=== PATIENT | female | born 1935 | race Caucasian/White ===

== ENCOUNTER → 2017-04-05 | Outpatient (CLI) | payer MEDICARE, OTHER ==
[~2017-04-05] MED LIST: CHEWABLE ASPIRI81 MG PO; DIOVAN HCT 12.51 TA2 PO; NORVASC 5MG. TAB5 MG PO; SYNTHROID 0.0.075 MG PO
--- NOTE | 2017-04-05 10:04 | CARDIOVASCULAR REPORT ---
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 785.9 Bruit. IMPRESSIONS 1. The bilateral vertebral arteries are patent with normal antegrade flow. 2. Study suggests less than 20% stenosis involving the right internal carotid artery and the left internal carotid artery. History: Risk factors: Hypertension. Carotid duplex study. Complete study and Doppler flow study including spectral analysis, color and huff scale imaging. Location: Vascular laboratory. Patient status: Outpatient. Tables: Arterial flow: + +--------+--------+ |Location |V sys |V ed | + +--------+--------+ |Right CCA - proximal|68.4cm/s|15.7cm/s| + +--------+--------+ |Right CCA - distal |64.4cm/s|16.5cm/s| + +--------+--------+ |Right ECA |73.1cm/s|--------| + +--------+--------+ |Right ICA - proximal|57.4cm/s|16.5cm/s| + +--------+--------+ |Right ICA - mid |72.3cm/s|18.1cm/s| + +--------+--------+ |Right ICA - distal |77.8cm/s|17.3cm/s| + +--------+--------+ |Right vertebral |47.9cm/s|--------| + +--------+--------+ |Left CCA - proximal |96.6cm/s|17.3cm/s| + +--------+--------+ |Left CCA - distal |63.6cm/s|14.1cm/s| + +--------+--------+ |Left ECA |84.1cm/s|--------| + +--------+--------+ |Left ICA - proximal |28.8cm/s|8.7cm/s | + +--------+--------+ |Left ICA - mid |55.4cm/s|15.7cm/s| + +--------+--------+ |Left ICA - distal |68.1cm/s|20.5cm/s| + +--------+--------+ |Left vertebral |39.3cm/s|--------| + +--------+--------+ Velocity ratios: + + + + + + | |Right, V sys|Right, V ed|Left, V sys|Left, V ed| + + + + + + |Max ICA/dist CCA|1.21 |1.1 |1.07 |1.45 | + + + + + + (Report amended ) Electronically signed by: Refugio Rojas [id number]"
--- NOTE | 2017-04-05 16:03 | RADIOLOGY REPORT PS360 ---
PROCEDURE: 2-D M-mode and color Doppler study INDICATIONS FOR THE TEST: Chest pain COPD Heart Murmur Tobacco Smoking Palpitations Fatigue+ Syncope Edema Hypertension+Diabetes Mellitus Rheumatic Fever SOB LOVELL Obesity Hyperlipidemia Family History HD+ Additional History CVA 1993 PATIENT INFORMATION HEIGHT: 61 WEIGHT: 160 GENDER: Female B/P: 138/86 2-D/M-MODE INTERPRETATION: 2-D MEASUREMENTS OBSERVED VALUES IN CMS Right Ventricular Dimension (RVDd) 2.3 Interventricular Septum (Thickness)(IVsd) 1.1 Left Ventricular Internal Dimensions(LVIDd) 4.2 Left Ventricular Posterior Wall (Thickness)(LVPWd) 1.1 Aortic Root 2.0 Aortic Cusp Separation 1.6 Left Atrial Dimensions (LAD) 3.4 2D 1. Left atrium is qualitatively mildly enlarged, left ventricle is normal size, there is mild concentric left ventricular hypertrophy, visually estimated ejection fraction 55% with no obvious regional wall motion abnormality. 2. The right atrium and right ventricle are normal size and contractility. 3. The aortic valve is minimally thickened and calcified leaflet continue to display mobility. 4. The mitral valve has mild mitral calcification, there is no mitral stenosis. 5. The tricuspid valve is structurally normal. 6. The pulmonic valve is not well visualized. 7. No significant pericardial effusion noted. DOPPLER INTERROGATION: Doppler interrogation of the aortic mitral and tricuspid valvular presence of mild aortic, mild mitral and tricuspid regurgitation, tricuspid regurgitant jet velocity insufficient for calculation of the right ventricular systolic pressure, grade 1 diastolic dysfunction seen with tissue Doppler evidence of raised left atrial pressure. CONCLUSION: 1. Mildly enlarged left atrium, normal left ventricular size, mild concentric left ventricular hypertrophy, visually estimated ejection fraction 55% with no obvious regional wall motion abnormality. Grade 1 diastolic dysfunction seen with tissue Doppler evidence of raised left atrial pressure. 2. Mild aortic, mild mitral and tricuspid regurgitation, tricuspid and jet velocity insufficient for calculation of the right ventricular systolic pressure. 3. No significant pericardial effusion noted.
== END ==
LOC: RT 09:00
DX: R09.89 Other specified symptoms and signs involving the circulatory and respiratory systems (principal); R60.1 Generalized edema

== ENCOUNTER → 2017-05-06 | Day surgery (SDC) | payer MEDICARE, OTHER ==
[2017-05-06] VITALS (10 sets, daily range): BP systolic 121–172; BP diastolic 62–106
[2017-05-06 08:02] LABS: HEMOGLOBIN 13.2 g/dL (12.2-16.2); LYMPH # 1.9 K/mm3 (0.7-4.5); LYMPH % 15.1 % (10-50.0)
[2017-05-06 08:07] LABS: BUN 15 mg/dL (7-18); GFR (ESTIMATED) 69 ML/MIN (59-)
[2017-05-06 09:11] LABS: URINE BILIRUBIN - DIPSTICK NEGATIVE (NEG); URINE BLOOD NEGATIVE (NEG)
[2017-05-07] VITALS (8 sets, daily range): BP systolic 145–186; BP diastolic 63–85
--- NOTE | 2017-05-13 16:16 | RADIOLOGY REPORT PS360 ---
CARDIAC CATHETERIZATION DATE OF CATHETERIZATION:05/06/2017 3:57 PM PROCEDURES: 1. Left heart catheterization 2. Left ventriculogram 3. Selective coronary angiogram 4. Drug-eluting stent deployment to the mid left anterior 5. Drug-eluting stent deployment to the first diagonal artery 6. Drug-eluting stent deployment to the proximal dominant circumflex artery INDICATION FOR TEST: 1. Abnormal Myoview 2. Coronary artery disease 3. Preoperative evaluation 4. High risk abnormal stress test Informed consent was obtained prior to the procedure. COMPLICATIONS: None ESTIMATED BLOOD LOSS: Less than 10 ml. TECHNIQUE: One percent lidocaine used to anesthetize the right anterior aspect of the wrist. The right radial artery was accessed via the Seldinger technique. A 6 [place] sheath was placed in the right radial artery. 2.5 mg of verapamil, 800 mcg of nitroglycerin and 5000 U Heparin were given through the arterial sheath. A trap dexterity catheter was also used to perform left heart catheterization and left ventriculography. At the end of the diagnostic procedure an additional 2000 units of heparin was administered intravenously. The ACT was measured at 373 seconds. An NGDATA left guide catheter was used intubate the left main artery and a choice PT extra-support wire was placed into the proximal mid dominant circumflex artery. A 3.5 x 18 mm resolute [place] stent was deployed at 18 radha reducing the 70-80% stenosis to 0%. Excellent angiographic results were obtained with TOO-3 flow down the vessel before and after the procedure. Following stenting of the circumflex artery the wire was in placed down into the mid LAD and a noncompliant 2.0 x 15 mm balloon was used to predilate the stenosis. Following this a 2.5 x 18 mm resolute [place] stent is deployed at 16 radha reducing the severe stenosis to 0%. The LAD itself had excellent angiographic results however a very large diagonal artery which has the appearance of a dual LAD system had an ostial complex stenosis. After repeat angiography I decided this vessel was so large that revascularization was needed especially given the plaque shifting complex nature of the ostial diagonal artery. The wire was placed into the diagonal artery and a 1.5 mm balloon into be used in order to push through the high-grade stenosis. An additional predilatation was made and the diagonal artery using a 2.5 mm balloon. Following this an additional 2.5 x 18 mm resolute [place] stent was placed in the proximal LAD extending into the proximal portion of the diagonal artery and deployed at 12 radha. Following this a noncompliant 2.5 x 10 mm balloon was placed in the LAD proper outside of the diagonal artery and deployed at any atmospheres in order to post dilate. Excellent angiographic results were obtained with TOO-3 flow down the LAD and diagonal artery before and after the procedure. The end of the procedure the apparatus was removed the sheath was removed good hemostasis was achieved using TR banding patient transferred the postop holding area in stable condition. Prior to the intervention patient received 180 mg of oral Brilinta. Prior to the intervention the initial ACT measured 373 seconds with the closing ACT 7 seconds. ANGIOGRAPHIC RESULTS: 1. The left main artery is normal 2. The left anterior descending artery has proximal 20% stenoses followed by a severe greater than 90% stenosis immediately after a large first diagonal artery. The first diagonal artery is equal in size to the LAD proper and has an ostial proximal 50% stenosis 3. The circumflex artery is a large dominant vessel and has a proximal concentric 70-80% stenosis with additional 50% stenoses in the proximal large first obtuse marginal artery 4. The right coronary artery is a codominant vessel and has a proximal 20-30% stenosis mid vessel 30% stenosis followed by an additional 30-40% stenosis 5. The CELESTIN ventriculogram reveals slightly hyperdynamic at 75% 6. The left ventricular end-diastolic pressure 15 to 20 mmHg IMPRESSION: 1. Severe 2 vessel coronary artery disease as described above . 2. Successful stenting of the proximal to mid LAD severe disease reduced to 0% with 2 stents in the LAD proper 3. Severe stenosis in the first diagonal artery resulting from plaque shifting combined with flandreau disease with successful stenting the proximal LAD extending into the proximal diagonal artery being reduced to 0% with 1 drug-eluting stent as described above 4. Successful drug-eluting stenting of the proximal codominant circumflex artery severe disease reduced to 0% with 1 drug-eluting stent 5. Persistent mild to moderate disease in the right coronary artery 6. Slightly hyperdynamic left ventricular function 7. Mildly elevated LVEDP PLAN: 1. Brilinta and aspirin 2. Cardiac rehabilitation 3. Avoidance of tobacco products 4. Risk factor modification 5. Postponement of elective surgery for 6 months
== END ==
LOC: CATHLAB 07:30
PROVIDERS: Internal Medicine
PROC: B2111ZZ Fluoroscopy of Multiple Coronary Arteries using Low Osmolar Contrast (ICD-10-PCS; 2017-05-06)
PROC: B2151ZZ Fluoroscopy of Left Heart using Low Osmolar Contrast (ICD-10-PCS; 2017-05-06)
PROC: 027136Z Dilation of Coronary Artery, Two Arteries with Three Drug-eluting Intraluminal Devices, Percutaneous Approach (ICD-10-PCS; 2017-05-06)
PROC: 4A023N7 Measurement of Cardiac Sampling and Pressure, Left Heart, Percutaneous Approach (ICD-10-PCS; principal; 2017-05-06 09:00)
DX: I25.10 Atherosclerotic heart disease of native coronary artery without angina pectoris (principal); Z72.0 Tobacco use; R94.39 Abnormal result of other cardiovascular function study; I50.9 Heart failure, unspecified; I10 Essential (primary) hypertension; R09.89 Other specified symptoms and signs involving the circulatory and respiratory systems; Z86.73 Personal history of transient ischemic attack (TIA), and cerebral infarction without residual deficits; I25.83 Coronary atherosclerosis due to lipid rich plaque; N39.0 Urinary tract infection, site not specified
CPT/HCPCS: C1725; C1769; C1876; J1644; Q9967